=== PATIENT | female | born 1980 | race Caucasian/White ===

== ENCOUNTER → 2016-09-11 | Outpatient (CLI) | payer BC ==
--- NOTE | 2016-09-12 14:12 | MM ---
Reason for exam: additional evaluation requested from prior study. Last mammogram was performed 1 year ago. History: Benign US breast aspiration single RT of the right breast, September 13, 2015. Benign US biopsy breast VAD RT of the right breast, September 13, 2015. Physical Findings: Nurse did not find any significant physical abnormalities on exam. MG Diagnostic Mammo w CAD JOVAN Bilateral CC and MLO view(s) were taken. Prior study comparison: September 13, 2015, right breast MG diagnostic mammo RT wo CAD. August 11, 2015, bilateral MG diagnostic mammo w CAD JOVAN. The breast tissue is heterogeneously dense. This may lower the sensitivity of mammography. No significant new findings when compared with previous films. These results were verbally communicated with the patient and result sheet given to the patient on 09/11/16. ASSESSMENT: Benign, BI-RAD 2 RECOMMENDATION: Routine screening mammogram of both breasts at age 41.
--- NOTE | 2016-09-12 14:14 | USB ---
Reason for exam: additional evaluation requested from prior study. History: Benign US breast aspiration single RT of the right breast, September 13, 2015. Benign US biopsy breast VAD RT of the right breast, September 13, 2015. US Breast BILAT Right breast ultrasound includes all four quadrants, the retroareolar region and axilla. Finding demonstrate a 1.1 x 0.7 x 1.2cm solid lesion at 12-1 o'clock, a 0.7 x 0.4 x 0.6cm solid lesion at 6 o'clock, a 0.8 x 0.3 x 0.2cm cystic lesion at 8 o'clock, and a 2.1 x 1.0 x 1.6cm mixed lesion at 11 o'clock for which a repeat aspiration and biopsy is recommended. Left breast ultrasound includes all four quadrants, the retroareolar region and axilla. Finding demonstrate a 0.3 x 0.2 x 0.3cm too small to characterize lesion at 3 o'clock, and a 0.9 x 0.7 x 0.4cm cystic lesion at 8 o'clock. These results were verbally communicated with the patient and result sheet given to the patient on 09/11/16. ASSESSMENT: Suspicious, BI-RAD 4 RECOMMENDATION: Aspiration and ultrasound core biopsy of the right breast. Called with mammographic findings and has scheduled an appointment for the patient for 09/18/16 at 2:[address] Wan. Right breast aspiration scheduled for 09/18/16. PRELIMINARY REPORT CALLED AND FAXED TO DR. WAN ON 09/12/16 AT 300/TMP.
== END | disposition home or self-care (01) ==
LOC: RADMAMWWP 13:40
PROVIDERS: ATTEND Surgery
DX: R92.8 Other abnormal and inconclusive findings on diagnostic imaging of breast (principal); R92.2 Inconclusive mammogram
CPT/HCPCS: 76641; G0204

== ENCOUNTER → 2016-09-18 | Day surgery (SDC) | payer BC ==
[~2016-09-18] MED LIST: ALPRAZolam 0.25 MG TAB ONE; LIDOCAINE 1% INJ 10MG/ML (20 ML MDV) ONE
--- NOTE | 2016-09-18 15:04 | USB ---
EXAMINATION TYPE: US breast aspiration single RT DATE OF EXAM: 09/18/2016 CLINICAL HISTORY: R92.8 Abn Mammogram. TECHNIQUE: Ultrasound guided fine-needle aspiration of right breast. COMPARISON: Bilateral breast ultrasound September 11, 2016 and older studies. FINDINGS: The procedure of ultrasound guided core biopsy was explained to the patient. Benefits, alternatives, and risks were discussed. An informed consent was then obtained. The patient was placed in supine positioning for imaging and for the procedure. Preprocedure imaging redemonstrates nonsimple cyst with septation 11: 00 position zone a measuring roughly 1.8 cm on long axis. The overlying skin was prepped and draped in usual sterile fashion. Lidocaine was used as anesthetic into the skin and subcutaneous tissue up to area of concern in the right breast. Under ultrasound guidance, a 20-gauge spinal needle was used to aspirate approximately 3 cc of dark-colored fluid to near complete resolution. Biopsy clip was not placed as results are almost certainly benign and no biopsy was performed. The patient tolerated the procedure well without any immediate complication. The patient was kept in the radiology department for short stay after the procedure and then discharged home in stable condition. IMPRESSION: Successful, uncomplicated fine-needle aspiration of area of concern in the right breast, full pathology results to follow. Low index of suspicion noted at time of procedure. Pathology Results: Benign BREAST, RIGHT, SITE A ELEVEN O'CLOCK, ASPIRATE: BLOOD WITH PIGMENTED HISTIOCYTES , DEGENERATED CELLULAR MATERIAL AND RARE AGGREGATES OF BLAND APOCRINE CELLS CONSISTENT WITH BENIGN APOCRINE CYST/CYST CONTENTS. Recommendation Follow up ultrasound of the right breast in 6 months. JAHAIRA
== END ==
LOC: RADUSWWP 13:22
PROVIDERS: ATTEND Surgery
DX: N60.01 Solitary cyst of right breast (principal); R92.8 Other abnormal and inconclusive findings on diagnostic imaging of breast
CPT/HCPCS: 88108; 76942; 19000; J2001

== ENCOUNTER → 2017-10-29 | Outpatient (CLI) | payer BC ==
--- NOTE | 2017-10-29 13:47 | MM ---
Reason for exam: additional evaluation requested from prior study. Last mammogram was performed 1 year and 2 months ago. History: Benign US breast aspiration single RT of the right breast, September 18, 2016. Benign US breast aspiration single RT of the right breast, September 13, 2015. Benign US biopsy breast VAD RT of the right breast, September 13, 2015. Physical Findings: Nurse Summary: 1cm nodule in the right breast at 10 o'clock and a 2cm nodule in the left breast at 12 o'clock (nurse mj). MG Diagnostic Mammo w CAD JOVAN Bilateral CC and MLO view(s) were taken. Prior study comparison: September 11, 2016, bilateral MG diagnostic mammo w CAD JOVAN. September 13, 2015, right breast MG diagnostic mammo RT wo CAD. The breast tissue is extremely dense which could obscure a lesion on mammography. Previous mammotome biopsy in the right breast. Palpable markers bilateral breasts. Very dense bilateral breast tissue. No suspicious calcifications. These results were verbally communicated with the patient and result sheet given to the patient on 10/29/17. ASSESSMENT: Incomplete: need additional imaging evaluation, BI-RAD 0 RECOMMENDATION: Ultrasound of both breasts.
--- NOTE | 2017-10-29 13:53 | USB ---
Reason for exam: additional evaluation requested from abnormal screening. History: Benign US breast aspiration single RT of the right breast, September 18, 2016. Benign US breast aspiration single RT of the right breast, September 13, 2015. Benign US biopsy breast VAD RT of the right breast, September 13, 2015. US Breast BILAT Right complete breast ultrasound includes all four quadrants, the retroareolar region and axilla. Finding demonstrates a 1.3 x 0.7 x 1.3cm solid, hypoechoic lesion at 12 o'clock, stable, probably fibroadenoma, a 0.7 x 0.7 x 0.7cm hypoechoic lesion at 3 o'clock, stable, benign, a 1.4 x 0.5 x 1.5cm cystic, benign lesion at 8 o'clock and a 2.9 x 1.2 x 2.7cm cystic lesion at 11 o'clock, septations, debris, large palpable cyst cluster, benign. Left complete breast ultrasound includes all four quadrants, the retroareolar region and axilla. Finding demonstrates a 0.8 x 0.4 x 0.6cm circumscribed, hypoechoic lesion at 12 o'clock with thru transmission likely fibroadenoma, a 0.6 x 0.4 x 0.7cm cystic cluster at the palpable at 1 o'clock, a 0.6 x 0.4 x 0.5cm mixed lesion at 8 o'clock likely cyst cluster and multiple cystic areas noted. These results were verbally communicated with the patient and result sheet given to the patient on 10/29/17. ASSESSMENT: Benign, BI-RAD 2 RECOMMENDATION: Routine screening mammogram of both breasts at age 41. (unless clinical indication to start sooner)
== END | disposition home or self-care (01) ==
LOC: RADMAMWWP 09:33
PROVIDERS: ATTEND Family Medicine
DX: N60.11 Diffuse cystic mastopathy of right breast (principal); N60.12 Diffuse cystic mastopathy of left breast
CPT/HCPCS: 77066

== ENCOUNTER → 2021-05-04 | Outpatient (CLI) | payer BC ==
--- NOTE | 2021-05-07 13:42 | MM ---
Reason for exam: screening (asymptomatic). Last mammogram was performed 3 years and 6 months ago. History: Family history of breast cancer in paternal aunt. Benign US breast aspiration single RT of the right breast, September 18, 2016. Benign US breast aspiration single RT of the right breast, September 13, 2015. Benign US biopsy breast VAD RT of the right breast, September 13, 2015. Physical Findings: A clinical breast exam by your physician is recommended on an annual basis and results should be correlated with mammographic findings. MG Screening Mammo w CAD Bilateral CC and MLO view(s) were taken. Prior study comparison: October 29, 2017, bilateral MG diagnostic mammo w CAD JOVAN. September 11, 2016, bilateral MG diagnostic mammo w CAD JOVAN. The breast tissue is extremely dense which could obscure a lesion on mammography. Finding: There are two new equal density (isodense), circumscribed round masses in the upper outer quadrant, anterior position of the right breast. Previous mammotome biopsy in the right breast. New finding since October 29, 2017 and September 11, 2016. ASSESSMENT: Incomplete: need additional imaging evaluation, BI-RAD 0 RECOMMENDATION: Ultrasound of the right breast. [facility] will attempt to contact patient to return for ultrasound.
== END | disposition home or self-care (01) ==
LOC: RADMAMWWP 11:48
PROVIDERS: ATTEND Obstetrics & Gynecology
DX: Z12.31 Encounter for screening mammogram for malignant neoplasm of breast (principal); Z80.3 Family history of malignant neoplasm of breast
CPT/HCPCS: 77067

== ENCOUNTER → 2021-05-18 | Outpatient (CLI) | payer BC ==
--- NOTE | 2021-05-21 11:25 | USB ---
Reason for exam: additional evaluation requested from abnormal screening. History: Family history of breast cancer in paternal aunt. Benign US breast aspiration single RT of the right breast, September 18, 2016. Benign US breast aspiration single RT of the right breast, September 13, 2015. Benign US biopsy breast VAD RT of the right breast, September 13, 2015. Physical Findings: Nurse did not find any significant physical abnormalities on exam. US Breast Workup Limited RT Right limited breast ultrasound including focal area of concern, retroareolar and axilla demonstrates a 0.8 x 0.5 x 0.7cm cystic lesion at 9 o'clock, a 0.7 x 0.7 x 0.7cm, mixed lesion at 11 o'clock, a 0.6 x 0.6 x 0.7cm mixed lesion at 11 o'clock, short term follow up recommended, a 1.5 x 0.6 x 1.6cm cystic cluster at 12 o'clock and a 1.2 x 0.6 x 1.2cm hypoechoic lesion with vasculature at 12 o'clock, biopsy recommended. These results were verbally communicated with the patient and result sheet given to the patient on 05/18/21. ASSESSMENT: Suspicious, BI-RAD 4 RECOMMENDATION: Ultrasound core biopsy of the right breast. (12 o'clock) Called Dr. Kulkarni's office with mammographic findings and has scheduled an appointment for the patient for 06/20/21 at 9:[address] Rosado. Biopsy scheduled for 06/13/21 at 9:30. PRELIMINARY REPORT CALLED AND FAXED TO DR. ROSADO ON 05/21/21.
== END | disposition home or self-care (01) ==
LOC: RADUSWWP 14:53
PROVIDERS: ATTEND Obstetrics & Gynecology
DX: N60.01 Solitary cyst of right breast (principal); Z80.3 Family history of malignant neoplasm of breast

== ENCOUNTER → 2021-06-13 | Day surgery (SDC) | payer BC ==
[2021-06-13 09:38] VITALS: RESP 16; TEMP 98.1
[2021-06-13 11:35] VITALS: BP 111/73; PULSE 73
--- NOTE | 2021-06-13 18:40 | USB ---
EXAMINATION TYPE: US biopsy breast VAD RT DATE OF EXAM: 06/13/2021 CLINICAL HISTORY: R92.8 ABN MAMMO. TECHNIQUE: Ultrasound guided vaccuum assisted core biopsy of right breast. COMPARISON: NONE FINDINGS: The ultrasound guided core biopsy procedure was explained to the patient. The risks, benef its, alternatives were discussed. Risks of hemorrhage was discussed. An informed consent was then ob tained. Timeout was performed. The patient was placed in supine positioning for imaging and for the procedure. The overlying skin w as prepped with betadine and sterilely draped in usual sterile fashion. Lidocaine 1% was used as ane sthetic into the skin and lidocaine 1% with epinephrine was used for deeper breast tissue up to area of concern in the breast. A small skin diamond was made with surgical scalpel. Under ultrasound guidance, a 12-gauge vacuum assisted biopsy device was used to obtain 7 core samples . The structure appear bilobed and sampling from both areas was performed same time. A biopsy clip w as left in lesion. Coil clip was placed. Good hemostasis was obtained with direct pressure. No hemorrhage was identified at the time of the pr ocedure by ultrasound. Discharge instructions were discussed with the patient. The patient will foll ow up with the referring physician for results. Postprocedure mammogram: The patient was transferred to mammography for physician ordered post proced ure mammogram for clip placement verification. The clip is in the expected region of the biopsy. The patient tolerated the procedure well without any immediate complication. The patient was dischar ged to home in stable condition. IMPRESSION: 1. Successful ultrasound guided biopsy right breast. Recommendations: 1. Recommendations are pending pathology results.
== END | disposition home or self-care (01) ==
LOC: RADUSWWP 09:29
PROVIDERS: ATTEND Student in an Organized Health Care Education/Training Program
DX: D24.1 Benign neoplasm of right breast (principal); R92.1 Mammographic calcification found on diagnostic imaging of breast
CPT/HCPCS: 88305; 77065; 19083; A4648; J2001

== ENCOUNTER → 2022-07-24 | Outpatient (CLI) | payer BC ==
--- NOTE | 2022-07-24 11:46 | MM ---
Reason for Exam: Clinical finding. Last mammogram was performed 1 year(s) and 3 month(s) ago. Patient History: Menarche at age 13. First Full-Term at age 24. Premenopausal. Patient has history of breast feeding. 06/13/2021, Benign Core Biopsy on the right side. 09/18/2016, Benign Cyst Aspiration on the right side. 09/13/2015, Benign Core Biopsy on the right side. 09/13/2015, Benign Cyst Aspiration on the right side. Paternal aunt had breast cancer. Risk Values: Coby 5 year model risk: 1.5%. NCI Lifetime model risk: 14.3%. Prior Study Comparison: 08/11/2015 Bilateral Diagnostic Mammogram, [facility]. 09/13/2015 Right Diagnostic Mammogram, [facility]. 09/11/2016 Bilateral Diagnostic Mammogram, [facility] 10/29/2017 Bilateral Diagnostic Mammogram, [facility]. 05/04/2021 Bilateral Screening Mammogram, [facility]. 06/13/2021 Right Diagnostic Mammogram, [facility]. Tissue Density: The breast tissue is extremely dense which could obscure a lesion on mammography. Findings: Analyzed By CAD. There are 2 biopsy clips in the right breast now identified. Adjacent to the upper biopsy clip in the right breast there is stable 4 to 5 mm well-circumscribed mass. There are loosely grouped benign-appearing punctate calcifications in the left breast redemonstrated. Suggestion of possible large obscured mass in the left breast. Further workup advised. Overall Assessment: Incomplete: need additional imaging evaluation, BI-RAD 0 Management: Diagnostic Breast Ultrasound of the left breast. Ultrasound left breast. Results were given to the patient verbally at the time of exam. Electronically signed and approved by: Manoj Weir M.D.
--- NOTE | 2022-07-25 08:58 | USB ---
Reason for Exam: Follow-up at short interval from prior study. Patient History: Menarche at age 13. First Full-Term at age 24. Premenopausal. Patient has history of breast feeding. 06/13/2021, Benign Core Biopsy on the right side. 09/18/2016, Benign Cyst Aspiration on the right side. 09/13/2015, Benign Core Biopsy on the right side. 09/13/2015, Benign Cyst Aspiration on the right side. Paternal aunt had breast cancer. Risk Values: Coby 5 year model risk: 1.5%. NCI Lifetime model risk: 14.3%. Technique: Method: Targeted. Prior Study Comparison: 10/29/2017 Bilateral Diagnostic Mammogram, [facility]. 05/04/2021 Bilateral Screening Mammogram, [facility]. 06/13/2021 Right Diagnostic Mammogram, [facility]. Findings: The upper outer quadrant of the right breast, the upper inner quadrant of the left breast, the axilla of both breasts and the retroareolar of both breasts were scanned. There is persistent oval 1.4 x 0.7 x 1.0 cm circumscribed mass at 9:00 position 4 cm distance from nipple with increased through transmission and no vascularity fairly hypoechoic to anechoic in appearance likely reflecting a thin-walled cyst with some debris. Additional thin walled cystic lesions in the upper outer quadrant are redemonstrated with slightly more prominent debris in the 11:00 lesion similar to prior. No definitive new solid or cystic mass is identified. Left breast shows multiple thin-walled cysts of varying size and shape. No concerning solid or cystic mass clearly identified. Overall Assessment: Benign, BI-RAD 2 Management: Screening Mammogram of both breasts in 1 year. A clinical breast exam by your physician is recommended on an annual basis and results should be correlated with mammographic findings. This exam should not preclude additional follow-up of suspicious palpable abnormalities. Results were given to the patient verbally at the time of exam. Electronically signed and approved by: Manoj Weir M.D.
== END | disposition home or self-care (01) ==
LOC: RADMAMWWP 10:59
PROVIDERS: ATTEND Obstetrics & Gynecology
DX: R92.8 Other abnormal and inconclusive findings on diagnostic imaging of breast (principal); Z80.3 Family history of malignant neoplasm of breast
CPT/HCPCS: 77062; 77066

== ENCOUNTER → 2023-10-10 | Outpatient (CLI) | payer BC ==
--- NOTE | 2023-10-13 13:44 | MM ---
Reason for Exam: Screening (asymptomatic). Last mammogram was performed 1 year(s) and 2 month(s) ago. Patient History: Menarche at age 13. First Full-Term at age 24. Premenopausal. Patient has history of breast feeding. 06/13/2021, Benign Core Biopsy on the right side. 09/18/2016, Benign Cyst Aspiration on the right side. 09/13/2015, Benign Core Biopsy on the right side. 09/13/2015, Benign Cyst Aspiration on the right side. Paternal aunt had breast cancer at or over age 50. Risk Values: Coby 5 year model risk: 1.6%. NCI Lifetime model risk: 14.1%. Prior Study Comparison: 05/04/2021 Bilateral Screening Mammogram, [facility]. 06/13/2021 Right Diagnostic Mammogram, [facility]. 07/24/2022 Bilateral MG 3D diag mammo w/cad JOVAN, [facility]. Tissue Density: The breasts are heterogeneously dense, which may obscure small masses. Findings: Analyzed By CAD. Right breast: There is no suspicious group of microcalcifications or new suspicious mass. Left breast: Asymmetry left breast MLO view inferiorly 4.8 cm the nipple. Not clearly correlated on CC view.Right breast biopsy clips. Benign-appearing calcifications bilaterally. Right breast: There is no suspicious group of microcalcifications or new suspicious mass. Left breast: Asymmetry left breast MLO view inferiorly 4.8 cm the nipple. Not clearly correlated on CC view. Overall Assessment: Incomplete: need additional imaging evaluation, BI-RAD 0 Management: Diagnostic Mammogram of the left breast. [facility] will attempt to contact patient to return for supplemental views and ultrasound if indicated. Patient should continue monthly self-breast exams. A clinical breast exam by your physician is recommended on an annual basis. This exam should not preclude additional follow-up of suspicious palpable abnormalities. Note on Coby scores and lifetime risk: 1. A Coby score greater than 3% is considered moderate risk. If this is the case, consider specialist referral to assess eligibility for a risk reducing agent. 2. If overall lifetime risk for the development of breast cancer is 20% or higher, the patient may qualify for future screening with alternating mammogram and breast MRI. Electronically signed and approved by: Ayo Adams DO
== END | disposition home or self-care (01) ==
LOC: RADMAMWWP 07:43
PROVIDERS: ATTEND Obstetrics & Gynecology
DX: Z12.31 Encounter for screening mammogram for malignant neoplasm of breast (principal); Z80.3 Family history of malignant neoplasm of breast
CPT/HCPCS: 77067

== ENCOUNTER → 2023-10-31 | Outpatient (CLI) | payer BC ==
--- NOTE | 2023-10-31 07:49 | MM ---
Reason for Exam: Additional evaluation requested from abnormal screening. Last screening mammogram was performed less than 1 month ago. Patient History: Menarche at age 13. First Full-Term at age 24. Premenopausal. Patient has history of breast feeding. 06/13/2021, Benign Core Biopsy on the right side. 09/18/2016, Benign Cyst Aspiration on the right side. 09/13/2015, Benign Core Biopsy on the right side. 09/13/2015, Benign Cyst Aspiration on the right side. Paternal aunt had breast cancer at or over age 50. Risk Values: Coby 5 year model risk: 1.6%. NCI Lifetime model risk: 14.1%. Prior Study Comparison: 06/13/2021 Right Diagnostic Mammogram, [facility]. 07/24/2022 Bilateral MG 3D diag mammo w/cad JOVAN, [facility]. 10/10/2023 Bilateral MG screening mammo w CAD, [facility]. Tissue Density: Left: The breasts are extremely dense, which lowers the sensitivity of mammography. Findings: Analyzed By CAD. Scattered benign-appearing calcifications are noted left breast. The inferior medial aspect left breast there is a 0.9 cm nodule with partially obscured margins located 3 cm from the nipple corresponding to the previous density. Additional workup with ultrasound recommended. Overall Assessment: Incomplete: need additional imaging evaluation, BI-RAD 0 Management: Diagnostic Breast Ultrasound of the left breast. A negative mammogram report should not preclude additional follow up of suspicious palpable abnormalities. Patient should continue monthly self breast exam. A clinical breast exam by your physician is recommended on an annual basis and results should be correlated with mammographic findings. Note on Coby scores and lifetime risk: 1. A Coby score greater than 3% is considered moderate risk. If this is the case, consider specialist referral to assess eligibility for a risk reducing agent. 2. If overall lifetime risk for the development of breast cancer is 20% or higher, the patient may qualify for future screening with alternating mammogram and breast MRI. Electronically signed and approved by: Kamari Quiroga D.O. Radiologis
--- NOTE | 2023-10-31 09:50 | USB ---
Reason for Exam: Additional evaluation requested from abnormal screening. Patient History: Menarche at age 13. First Full-Term at age 24. Premenopausal. Patient has history of breast feeding. 06/13/2021, Benign Core Biopsy on the right side. 09/18/2016, Benign Cyst Aspiration on the right side. 09/13/2015, Benign Core Biopsy on the right side. 09/13/2015, Benign Cyst Aspiration on the right side. Paternal aunt had breast cancer at or over age 50. Risk Values: Coby 5 year model risk: 1.6%. NCI Lifetime model risk: 14.1%. Technique: Method: Targeted. Prior Study Comparison: 06/13/2021 Right Diagnostic Mammogram, [facility]. 07/24/2022 Bilateral MG 3D diag mammo w/cad JOVAN, [facility]. 10/10/2023 Bilateral MG screening mammo w CAD, [facility]. Findings: The lower inner quadrant of the left breast, the axilla of the left breast and the retroareolar of the left breast were scanned. There are several simple appearing cysts present within the left breast. At the 9:00 position 3 cm nipple there is a 1.0 x 1.0 x 0.6 cm cyst appears to correlate with the mammographic findings. Additional slightly smaller cyst measuring 0.9 x 1.1 x 0.5 cm 3 cm the nipple is at the 8:00 position. Small cysts at the 6:00 position 3 cm. Overall Assessment: Probably benign, BI-RAD 3 Management: Diagnostic Mammogram of the left breast in 6 months. Diagnostic Breast Ultrasound of the left breast in 6 months. A clinical breast exam by your physician is recommended on an annual basis and results should be correlated with mammographic findings. This exam should not preclude additional follow-up of suspicious palpable abnormalities. Results were given to the patient verbally at the time of exam. Electronically signed and approved by: Kamari Quiroga D.O. Radiologis
== END | disposition home or self-care (01) ==
LOC: RADMAMWWP 07:29
PROVIDERS: ATTEND Obstetrics & Gynecology
DX: R92.342 Mammographic extreme density, left breast (principal); R92.8 Other abnormal and inconclusive findings on diagnostic imaging of breast; Z80.3 Family history of malignant neoplasm of breast
CPT/HCPCS: 77061; 77065